=== PATIENT | female | born 1945 | race Caucasian/White ===

== ENCOUNTER → 2016-04-30 | Outpatient (CLI) | payer MEDICARE, OTHER ==
[~2016-04-30] MED LIST: ATIVAN 0.50.5 MG/TAB PO; CALCIUM 500500 M1 PO; EPA FISH OIL1000 MG PO; LITHIUM 30300 MG/CAP PO; PRILOSEC OTC20 MG PO; VITAMIN B COMPL1 T16 PO; ZANTAC 150MG T150 MG PO
== END ==
LOC: BHSO 10:42
DX: F31.81 Bipolar II disorder (principal)

== ENCOUNTER → 2016-11-05 | Outpatient (CLI) | payer MEDICARE, OTHER | LOC: BHSO 10:33 | DX: F31.81 Bipolar II disorder (principal) ==

== ENCOUNTER → 2017-05-06 | Outpatient (CLI) | payer MEDICARE, OTHER | LOC: BHSO 10:40 | DX: F31.81 Bipolar II disorder (principal) | CPT/HCPCS: G0463 ==

== ENCOUNTER → 2017-11-04 | Outpatient (CLI) | payer MEDICARE, OTHER | LOC: BHSO 10:00 | DX: F31.81 Bipolar II disorder (principal) | CPT/HCPCS: G0463 ==

== ENCOUNTER → 2018-04-28 | Outpatient (CLI) | payer MEDICARE, OTHER | LOC: BHSO 09:31 | DX: F31.81 Bipolar II disorder (principal) | CPT/HCPCS: G0463 ==

== ENCOUNTER → 2018-08-24 | Outpatient (CLI) | payer MEDICARE, OTHER | LOC: MC.RAD 10:58 | DX: Z12.31 Encounter for screening mammogram for malignant neoplasm of breast (principal) ==

== ENCOUNTER → 2018-10-27 | Outpatient (CLI) | payer MEDICARE, OTHER | LOC: BHSO 09:59 | DX: F31.81 Bipolar II disorder (principal) | CPT/HCPCS: G0463 ==

== ENCOUNTER → 2019-04-24 | Outpatient (CLI) | payer MEDICARE, OTHER | LOC: BHSO 10:00 | DX: F31.81 Bipolar II disorder (principal) | CPT/HCPCS: G0463 ==

== ENCOUNTER → 2019-10-24 | Outpatient (CLI) | payer MEDICARE, OTHER | LOC: BHSO 10:03 | DX: F31.81 Bipolar II disorder (principal) | CPT/HCPCS: G0463 ==

== ENCOUNTER → 2021-07-16 | Outpatient (CLI) | payer MEDICARE, OTHER | LOC: MC.RAD 10:15 | DX: Z12.31 Encounter for screening mammogram for malignant neoplasm of breast (principal) ==

== ENCOUNTER 2023-11-12 11:00 | Outpatient (RCR) | payer MEDICARE | END 2023-11-17 | disposition home or self-care (01) | LOC: WSST | DX: R47.1 Dysarthria and anarthria (principal); R13.10 Dysphagia, unspecified ==

== ENCOUNTER 2023-12-17 11:15 | Outpatient (RCR) | payer MEDICARE | END 2023-12-18 | disposition home or self-care (01) | LOC: WSST | DX: R47.1 Dysarthria and anarthria (principal); R13.10 Dysphagia, unspecified ==

== ENCOUNTER 2023-12-21 10:29 | Outpatient (RCR) | payer MEDICARE | END 2024-01-17 | disposition home or self-care (01) | LOC: WSST | DX: R47.1 Dysarthria and anarthria (principal); R13.10 Dysphagia, unspecified ==